=== PATIENT | male | born 1990 | race Caucasian/White ===

== ENCOUNTER 2017-02-18 09:01 | Emergency (ER) | payer OTHER ==
[~2017-02-18] VITALS: Ht 177.8 cm; Wt 84.9 kg
[~2017-02-18 09:01] MED LIST: IBUP-1428 PO; TRAM-10 PO
[2017-02-18 09:09] VITALS: TEMP 37; Ht 177.8 cm; Wt 84.9 kg
[2017-02-18] MEDS ORDERED: IBUPROFEN 600 MG TAB PO STA (09:15)
[2017-02-18] MEDS: XYLOCAINE 1%/SOD BICARB 20 ML VIAL INFIL STA ×2 (09:15→09:36)
[2017-02-18] MEDS ORDERED: OXYCODONE/ACETAMINOPHEN 5-325 TAB PO ONE (09:15)
[2017-02-18] MEDS ORDERED: CEPHALEXIN MONOHYDRATE 250 MG CAP PO STA (09:15)
[2017-02-18] MEDS ORDERED: SULFAMETHOXAZOLE/TRIMETHOPRIM DS 800/160MG TAB PO STA (09:15)
[2017-02-18] MEDS ORDERED: METH10TA4 PO (09:28)
[2017-02-18 10:00] LABS: URINE APPEARANCE CLOUDY (CLEAR); URINE BILIRUBIN NEG (NEG); URINE COLOR DK YELLOW; URINE EPITHELIAL CELL AUTO 0-5 /lpf (0-5); URINE NITRITE NEG (NEG); URINE SPECIFIC GRAVITY 1.027 (1.000-1.030); UROBILINOGEN NEG (NEG); ZZUR CULT IF INDIC CLEAN CATCH YES
[2017-02-18 10:14] LABS: MANUAL MICROSCOPIC REQUIRED? NO; REVIEW REQ? NO
--- NOTE | 2017-02-18 10:21 | DIAGNOSTIC IMAGING REPORT ---
TESTICULAR ULTRASOUND CLINICAL HISTORY: Left testicular enlargement COMPARISON STUDY: CT scan dated 09/23/2013 FINDINGS: The left testis measures 46 x 17 x 29 mm. The right testis measures 46 x 20 x 23 mm. No intratesticular masses are visualized. There is no evidence of testicular torsion. There is a large left-sided varicocele. There is an incidental 2 mm right epididymal cyst. IMPRESSION: 1. No evidence of intratesticular mass 2. No evidence of testicular torsion 3. Large left-sided varicocele Electronically signed by: Rush Mcpherson M.D. 02/18/2017 10:19 AM Dictated Date/Time: 02/18/2017 10:18 AM
[2017-02-18 10:25] VITALS: BP 129/82; PULSE 101; O2SAT 97
[2017-02-18] MEDS ORDERED: CEPH500C PO (10:32)
[2017-02-18] MEDS ORDERED: SULF800T23 PO (10:32)
--- NOTE | 2017-02-18 10:42 | EMERGENCY ROOM VISIT NOTE ---
History Report prepared by Reba: Viri Harper Under the Supervision of: Dr. Raudel Norman M.D. First contact with patient: 09:11 Chief Complaint: ABDOMINAL PAIN Stated Complaint: PAIN IN MID-SECTION/SWELLING Nursing Triage Summary: pt reports pain under testicles in rear and lower abd pain started yesterday swelling noticed during night. History of Present Illness The patient is a 26 year old male who presents to the Emergency Room with complaints of persistent lower abdominal pain starting last night. He also notes left testicle swelling which he also noticed last night. He does not have any other complaints. He is not diabetic and is not on any medications. Source of History: patient Onset: last night Position: abdomen (lower) Quality: other (pain) Timing: other (persistent) Note: Pt reports left testicle swelling. Review of Systems See HPI for pertinent positives & negatives. A total of 10 systems reviewed and were otherwise negative. Past Medical & Surgical Medical Problems: (1) Cervicalgia (2) Head injury (3) Sprain Of Ankle Nos (4) Sprain Of Neck (5) Tobacco Use Disorder Family History Patient reports no known family medical history. Social History Smoking Status: Current Every Day Smoker Housing Status: lives with family Occupation Status: employed Current/Historical Medications Scheduled Cephalexin Monohydrate (Keflex), 1 CAP PO QID Methylphenidate (Ritalin), 10 MG PO QAM Sulfa/Trimethoprim (Bactrim Ds 800MG/160MG), 1 TAB PO BID Allergies Coded Allergies: No Known Allergies (Unverified , 02/18/17) Physical Exam Vital Signs Date Time Temp Pulse Resp B/P (MAP) Pulse Ox O2 Delivery O2 Flow Rate FiO2 02/18/17 10:25 101 18 129/82 97 Room Air 02/18/17 09:09 37.0 108 18 150/90 99 Room Air Physical Exam GENERAL: Patient is a healthy-appearing well-nourished male HEAD: Normocephalic atraumatic EYES: Ocular movements intact pupils equal and react to light OROPHARYNX mucous membranes are moist no exudates present no erythema or edema present NECK: Supple no nuchal rigidity CHEST: Good equal expansion LUNGS: Clear and equal to auscultation CARDIAC: Normal S1 and S2 ABDOMEN: Soft nontender no guarding BACK: No CVA tenderness : Left testicle is grossly swollen, no tenderness to palpation. Abscess draining pus to the suprapubic area 1 inch by 1 inch. EXTREMITIES: No pain upon palpation normal muscle strength in all groups no clubbing cyanosis or edema NEURO: Patient is following commands and answering questions appropriately. Alert and oriented x3 Cranial Nerves 2-12 grossly intact Medical Decision & Procedures ER Provider Diagnostic Interpretation: Radiology results as stated below per my review and radiologist interpretation: TESTICULAR ULTRASOUND CLINICAL HISTORY: Left testicular enlargement COMPARISON STUDY: CT scan dated 09/23/2013 FINDINGS: The left testis measures 46 x 17 x 29 mm. The right testis measures 46 x 20 x 23 mm. No intratesticular masses are visualized. There is no evidence of testicular torsion. There is a large left-sided varicocele. There is an incidental 2 mm right epididymal cyst. IMPRESSION: 1. No evidence of intratesticular mass 2. No evidence of testicular torsion 3. Large left-sided varicocele Electronically signed by: Rush Mcpherson M.D. 02/18/2017 10:19 AM Dictated Date/Time: 02/18/2017 10:18 AM Laboratory Results Test 02/18/17 09:45 Urine Color DK YELLOW Urine Appearance CLOUDY (CLEAR) Urine pH 6.0 (4.5-7.5) Urine Specific [place] 1.027 (1.000-1.030) Urine Protein 2+ (NEG) Urine Glucose (UA) NEG (NEG) Urine Ketones NEG (NEG) Urine Occult Blood 3+ (NEG) Urine Nitrite NEG (NEG) Urine Bilirubin NEG (NEG) Urine Urobilinogen NEG (NEG) Urine Leukocyte Esterase LARGE (NEG) Urine WBC (Auto) >30 /hpf (0-5) Urine RBC (Auto) >30 /hpf (0-4) Urine Hyaline Casts (Auto) 1-5 /lpf (0-5) Urine Epithelial Cells (Auto) 0-5 /lpf (0-5) Urine Bacteria (Auto) NEG (NEG) Labs reviewed by ED physician. Medications Administered Medications (Trade) Dose Ordered Sig/Chloe Route Start Time Stop Time Status Last Admin Dose Admin Cephalexin Monohydrate (Keflex Cap) 500 mg NOW STAT PO 02/18/17 09:15 02/18/17 09:20 DC 02/18/17 09:35 500 MG Trimethoprim/ Sulfamethoxazole (Septra Ds 800/ 160MG Tab) 1 tab NOW STAT PO 8/18/17 09:15 02/18/17 09:20 DC 02/18/17 09:35 1 TAB Ibuprofen (Motrin Tab) 600 mg NOW STAT PO 02/18/17 09:15 02/18/17 09:20 DC 02/18/17 09:34 600 MG Oxycodone/ Acetaminophen (Percocet 5-325mg Tab) 2 tab NOW ONCE PO 02/18/17 09:15 02/18/17 09:20 DC 02/18/17 09:34 2 TAB ED Course 09: Past medical records reviewed. The patient was evaluated in room B2. A complete history and physical examination was performed. 0915: Oxycodone/Acetaminophen 2 tab PO, Ibuprofen 600 mg PO, Trimethoprim/ Sulfamethoxazole 1 tab PO, Keflex Cap 500 mg PO. 1026: Upon reexamination the patient is resting comfortably. I recommended having the abscess drained, but he does not want to have it drained. I discussed results and treatment plan with the patient. He verbalizes agreement and understanding. The patient is ready for discharge. Medical Decision Differential diagnosis: hernia, varicocele, hydrocele. This is a 26-year-old male who presents emergency department complaining of left testicular swelling along with an abscess. I do not feel that to issues are related. I strongly recommended that the abscess be drained however the patient is adamantly refusing. I did perform a wound culture from drainage collecting from the wound. The patient was sent for an emergent ultrasound which was consistent with a varicocele. The patient was started on Keflex and Bactrim for the abscess. I recommended follow-up with urology for the varicocele. Patient was in agreement with the treatment plan. Medication Reconcilliation Current Medication List: was personally reviewed by me Blood Pressure Screening Patient's blood pressure: Elevated blood pressure Blood pressure disposition: Referred to PCP Impression Primary Impression: Abscess Additional Impression: Varicocele Scribe Attestation The scribe's documentation has been prepared under my direction and personally reviewed by me in its entirety. I confirm that the note above accurately reflects all work, treatment, procedures, and medical decision making performed by me. Departure Information Dispostion Home / Self-Care Prescriptions Sulfa/Trimethoprim (Bactrim Ds 800MG/160MG) Tab 1 TAB PO BID for 10 Days, #20 TAB Prov: Raudel Norman MD 02/18/17 Cephalexin Monohydrate (Keflex) 500 Mg Cap 1 CAP PO QID for 10 Days, #40 CAP Prov: Raudel Norman MD 02/18/17 Referrals No Doctor, Assigned (PCP) Rolando Malin M.D. Forms HOME CARE DOCUMENTATION FORM, IMPORTANT VISIT INFORMATION Patient Instructions Drainage Abscess, ED Varicocele, My [facility], Varicocele Tx Additional Instructions Follow up with Dr Malin's office You were found to have an elevated blood pressure today (>120 sytolic or >90 diastolic). Per medicare guidelines, you need to follow up with this blood pressure screening with your Primary Care Physician (PCP). For a new PCP call [phone]. Culture results are usually available in approx 48 hours You have been examined and treated today on an emergency basis only. This is not a substitute for, or an effort to provide, complete comprehensive medical care. It is impossible to recognize and treat all injuries or illnesses in a single emergency department visit. It is therefore important that you follow up closely with your PCP. Call as soon as possible for an appointment. Thank you for your time and consideration. I look forward to speaking with you again soon. Please don't hesitate to call us if you have any questions. Problem Qualifiers
== END 2017-02-18 10:43 | disposition home or self-care (01) ==
LOC: C.EDB 09:03
DX: N45.4 Abscess of epididymis or testis (principal); Z87.828 Personal history of other (healed) physical injury and trauma; F17.200 Nicotine dependence, unspecified, uncomplicated; I86.1 Scrotal varices

== ENCOUNTER → 2017-03-01 | Outpatient (CLI) | payer OTHER ==
[~2017-03-01] MED LIST changes: +CEPH500C PO; -IBUP-1428 PO; +METH10TA4 PO; +SULF800T23 PO; -TRAM-10 PO
--- NOTE | 2017-03-01 08:49 | DIAGNOSTIC IMAGING REPORT ---
ABDOMEN AND PELVIS CT WITHOUT CONTRAST CT DOSE: 436.78 mGy.cm HISTORY: Left lower quadrant abdominal pain. Scrotal swelling. TECHNIQUE: Multiaxial CT images of the abdomen and pelvis were performed without contrast. A dose lowering technique was utilized adhering to the principles of ALARA. COMPARISON STUDY: Abdomen and pelvis CT 09/23/2013. Testicular ultrasound 02/18/2017. FINDINGS: Faint groundglass density of the lung bases may be due to mild air trapping. No pneumoperitoneum. No pneumatosis. Right L5 pars defect. The unenhanced liver, spleen, pancreas, gallbladder, and kidneys are unremarkable. No renal or ureteral stones. No hydronephrosis. Small amount of calcification within the right adrenal gland. A 1.8 cm left adrenal gland nodule. This demonstrates average Hounsfield units of less than 10 and is therefore considered to be a benign adenoma. 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 The left gonadal vein extending from the left renal vein is diffusely dilated measuring up to 8 mm. This is slightly progressed compared the 2013 examination. This results in the large left varicocele. The bladder is unremarkable. Suboptimal evaluation for bowel pathology due to the lack of intravenous and oral contrast. However, there is no definite bowel wall thickening or obstruction. Normal appendix. A few borderline enlarged left external iliac lymph nodes. The largest measures 11 x 9 mm. A few prominent left para-aortic lymph nodes. Dominant lymph node measures 12 x 8 cm. IMPRESSION: 1. No renal or ureteral stones. No hydronephrosis. 2. Dilated left gonadal vein resulting in the large left varicocele. This could be result of the left retroaortic renal vein which is narrowed as it crosses posterior to the aorta. 3. No bowel wall thickening or obstruction. 4. A 1.8 cm benign left adrenal adenoma. 5. A few borderline enlarged left para-aortic and left pelvic sidewall lymph nodes. Electronically signed by: Vikas Sotelo M.D. 03/01/2017 8:47 AM Dictated Date/Time: 03/01/2017 8:26 AM
== END | disposition home or self-care (01) ==
LOC: C.CTS 08:13
PROVIDERS: ATTEND Urology
DX: R10.32 Left lower quadrant pain (principal); N50.89 Other specified disorders of the male genital organs; I86.8 Varicose veins of other specified sites; D35.00 Benign neoplasm of unspecified adrenal gland; R59.1 Generalized enlarged lymph nodes